=== PATIENT | male | born 1965 | race Caucasian/White ===

== ENCOUNTER 2018-06-07 01:58 | Observation (INO) | payer OTHER ==
[~2018-06-07] VITALS: Ht 182.9 cm; Wt 106.6 kg
[2018-06-07 07:29] LABS: ABSOLUTE BASOPHIL COUNT 0 /CUMM (0.0-0.2); ABSOLUTE EOSINOPHIL COUNT 0.2 /CUMM (0.0-0.7); ABSOLUTE LYMPH COUNT 1.9 /CUMM (1.2-3.4); ABSOLUTE MONOCYTE COUNT 0.8 /CUMM (0.10-0.60); BASOPHIL % 0.3 % (0.0-2.0); GRANULOCYTE % 62.5 % (42.2-75.2); HEMATOCRIT 44.1 % (42-52); MEAN CORPUSCULAR HGB CONC 33.2 G/DL (33.0-37.0); MEAN CORPUSCULAR VOLUME 84.4 FL (80.0-94.0); MEAN PLATELET VOLUME 9.5 FL (7.4-10.4); PLATELET COUNT 243 /CUMM (130-400); RBC DISTRIBUTION WIDTH 13.7 % (11.5-14.5); RED BLOOD CELL CT 5.23 /CUMM (4.70-6.10); WHITE BLOOD CELL COUNT 7.9 /CUMM (4.8-10.8)
--- NOTE | 2018-06-07 19:33 | Admission Core Measures ---
Acute Coronary Syndrome (CM) ACS Core Measures Acute Coronary Syndrome Diagnosis No Congestive Heart Failure (NEW) CHF Core Measures Congestive Heart Failure Diagnosis No Cerebrovascular Accident CVA Core Measures CVA/TIA Diagnosis No Venous Thromboembolism VTE Core Ray (View Protocol) VTE Risk Factors Surgery No Mechanical VTE Prophylaxis d/t N/A MechProphylax Ordered No VTE Pharm Prophylaxis d/t Surgical Contraindication Problem List As ranked by this Provider includes Assessment & Plan 1. Tumor of parotid gland
[2018-06-07 19:55] VITALS: BP 140/76
[2018-06-07 20:19] VITALS: BP 140/76
[2018-06-07 22:02] VITALS: BP 132/72
--- NOTE | 2018-06-07 22:42 | PN- General Surgery ---
Subjective Subjective: POC feeling better, some sore throat, some pain at site, taking sips of water, no appetite. no cp/sob/n/v. no postop void yet Objective Vital Signs and I&Os Vital Signs Date Time Temp Pulse Resp B/P B/P Pulse O2 O2 Flow FiO2 Mean Ox Delivery Rate 06/07 2202 97.7 70 20 132/72 97 Room Air 06/07 1955 97.7 66 20 140/76 96 Room Air Physical Exam: gen- nad neck- incision dressed, cdi. fermin w 10 evening shift, serosang. no facial motor deficits appreciated. card- s1s2 rrr pulm-ctab abd-soft nt ext- calves soft nt Assessment/Plan Assessment/Plan A- POD0 sp left parotid glad excision for mass, stable postop with minimal pain. P- prn pain meds diet as tolerated dtv postop alps, oob, ambulate fermin self suction i&os dc planning Core Measures Venous Thromboembolism VTE Risk Factors Surgery No Mechanical VTE Prophylaxis d/t N/A MechProphylax Ordered No VTE Pharm Prophylaxis d/t Surgical Contraindication
[2018-06-08 00:31] VITALS: BP 144/90
[2018-06-08 02:30] VITALS: BP 138/82
[2018-06-08 06:12] VITALS: BP 132/78
[2018-06-08 08:00] VITALS: BP 130/80
[2018-06-08] MEDS ORDERED: PERCOCET 5-3251 EACH PO (08:48)
--- NOTE | 2018-06-08 08:49 | PN- General Surgery ---
See Addendum Subjective Subjective: Patient comfortable, no acute events overnight, no motor or sensate deficits. Swallowing and drinking okay. Pain well controlled Objective Vital Signs and I&Os Vital Signs Date Time Temp Pulse Resp B/P B/P Pulse O2 O2 Flow FiO2 Mean Ox Delivery Rate 06/08 0612 98.8 63 20 132/78 97 Room Air 06/08 0230 98.1 69 20 138/82 98 Room Air 06/08 0031 98.0 71 20 144/90 98 Room Air 06/07 2202 97.7 70 20 132/72 97 Room Air 06/07 1955 97.7 66 20 140/76 96 Room Air Intake & Output 06/08 1600 06/08 0800 06/08 0000 06/07 1600 06/07 0800 06/07 0000 Intake Total 1000 300 Output Total 20 10 Balance 980 290 Intake, IV 800 200 Intake, Oral 200 100 Output, 20 10 Drainage Patient 235 lb Weight Physical Exam: Well-developed well-nourished no apparent distress. HEENT: extraocular motion intact Dressing clean dry and intact with trace serous drainage. QUINTEN drain in place with trace amount of thin serous drainage. Mild left-sided facial swelling. No collection. No induration. Cranial nerves II through XII grossly intact Neck: Supple, no lymphadenopathy Respiratory: No respiratory distress Extremities: No edema, no calf pain Neuro: Alert and oriented x3 Psych: Mood affect normal, normal memory normal judgment. Skin: Warm and dry, no rash on exposed skin Assessment/Plan Assessment/Plan A- POD1 sp left parotid glad excision for mass, stable postop P- Patient being observed for 23 hours for monitoring of swelling and postoperative complications due to extensive nature of her surgery. He is surgically stable without any immediate postop complications. He is stable for discharge home. We will leave the drain in place and he will follow-up in the office on Wednesday, he will call if the drainage stops to have the drain removed sooner. Discussed with Jaime Pollard MD prn pain meds Core Measures Venous Thromboembolism VTE Risk Factors Surgery No Mechanical VTE Prophylaxis d/t N/A MechProphylax Ordered No VTE Pharm Prophylaxis d/t Surgical Contraindication
--- NOTE | 2018-06-08 08:53 | Patient Discharge Instructions ---
Discharge Instructions General Discharge Information You were seen/treated for: Parotid gland tumor/mass You had these procedures: Parotid gland tumor excision Watch for these problems: Worsening pain, weakness or numbness in the face, difficulty swallowing difficulty talking, significant drainage, fever, flulike illness, redness about the incision Call Surgeon to remove: Other, have drain removed wednesday Do not soak the wound: Yes Other wound care: Keep the dressing in place, try not to get it wet. The drain will remain in place until your follow-up visit on Wednesday. If the drainage stops completely, call the office, you will be asked to come in to have the drain removed sooner. Take pain medication as needed. You may take Tylenol or Motrin as well for pain Diet Continue normal diet: Yes Recommended Diet: Regular Activity Full Activity/No Limits: No Activity Self Limited: Yes Acute Coronary Syndrome Inclusion Criteria At DC or during hospital stay patient has or had the following: ACS DIAGNOSIS No Discharge Core Measures Meds if any: Prescribed or Continued at Discharge Meds if any: NOT Prescribed or Continued at Discharge Congestive Heart Failure Inclusion Criteria At DC or during hospital stay patient has or had the following: CHF DIAGNOSIS No Discharge Core Measures Meds if any: Prescribed or Continued at Discharge Meds if any: NOT Prescribed or Continued at Discharge Cerebrovascular accident Inclusion Criteria At DC or during hospital stay patient has or had the following: CVA/TIA Diagnosis No Discharge Core Measures Meds if any: Prescribed or Continued at Discharge Meds if any: NOT Prescribed or Continued at Discharge Venous thromboembolism Inclusion Criteria VTE Diagnosis No VTE Type NONE VTE Confirmed by (Test) NONE Discharge Core Measures - Per Current guidelines, there needs to be overlap - treatment for the first 5 days of Warfarin therapy. - If discharged on Warfarin prior to 5 days of - overlap therapy, the patient will need to be - assessed for post discharge needs including - *Post discharge parental anticoagulation - *Warfarin and/or parental anticoagulation education - *Follow up date to check INR post discharge At least 5 days overlap therapy as Inpatient No Meds if any: Prescribed or Continued at Discharge Note: Overlap Therapy is Warfarin and Anticoagulant Meds if any: NOT Prescribed or Continued at Discharge
--- NOTE | 2018-06-13 09:26 | Operative Report ---
Operative/Inv Procedure Report Surgery Date: 06/07/18 Name of Procedure: Left Superficial parotidectomy with dissection of the facial nerve Pre-Operative Diagnosis: left parotid tumor Post-Operative Diagnosis: SameSame Estimated Blood Loss: scant Surgeon/Nursing Assoc: Atul DAVILA,Jaime OWUSU Anesthesia: general endotracheal tube Operative/Procedure Note Note: Patient position supine on the OR table after successful induction of general anesthesia and timeouts antibiotics were given his head was positioned turned to the right and the left side of his face and neck and jaw were clipped prepped and draped in the usual sterile fashion. An incision was first drawn starting at the top of the left tragus hugging it down around the pinna and curving posteriorly around the tumor and then continuing inferiorly slightly, parallel to the line of the mandible, and the area was infiltrated local anesthetic and incision was made. Skin flap was developed medially off of and past the fascia covering the parotid, and then a second flap was developed posterolaterally over the sternocleidomastoid muscle. You could see the greater auricular nerve branching over the tumor which was cystic large and covered with large splayed out veins. On the CT you could see that this tumor was inferior and abutted the posterior aspect of the superficial lobe where the facial nerve runs. Next we dissected just medial to the tragus slowly staying close to the cartilage searching for the main trunk of the facial nerve this was not obvious at first so we switched our efforts to the inferior aspect of this round tumor because that defined the plane well. However these veins were difficult to control so we deliberately decompress the cystic mass under controlled conditions suctioned it out and so the whole shot it was milky fluid which was sent for culture but it was not all fluid there was mass there as well. And then we found the lower divisions of the facial nerve marginal mandibular and we traced it back towards the trunk and in so doing staying in that plane between the lobes on top of the nerve using a bipolar cautery between mosquito clamps, we divided the parts of normal parotid tissue between the 2 lobes staying on top of the nerve and underneath the tumor listing it upwards superiorly there was normal parotid tissue here we did not fully dissect out the upper branches divisions of the facial nerve in the interest of trying not to injure them we had adequate margin around the tumor anteriorly branches of the greater auricular nerve had to be sacrificed and there was some communicating branches deep between the divisions of the facial nerve one inferior that had to be sacrificed because it was going right into the substance of the tumor I could not separate it but the main divisions were preserved. The tumor and superficial lobe except for a thin rim superiorly was completely removed in 1 piece I feel we got grossly negative margins we checked for hemostasis placed a 10 round Matthias-Hackett drain through a separate stab incision inferiorly and closed the incision in layers using interrupted 3-0 Vicryl sutures subdermally and a running 4-0 nylon for the skin itself followed by bacitracin Telfa and Tegaderm. EBL minimal lap and sponge counts correct wound expectancy clean IV fluids crystalloid complications none patient tolerated the procedure well was extubated and returned to recovery room in satisfactory condition.
== END 2018-06-08 10:30 ==
LOC: STS 01:58 → PACUH 18:28 → ENRESERV 19:01 → 1NO 19:48
PROVIDERS: Surgery
DX: D11.0 Benign neoplasm of parotid gland (principal); Z87.891 Personal history of nicotine dependence; Z72.89 Other problems related to lifestyle
CPT/HCPCS: 6020; 87070; 87075; 36415; 87086; 93005; 93010; 96374; 96376; G0378; J0690; J3490; J7042